=== PATIENT | female | born 1990 ===

== ENCOUNTER 2018-11-24 17:26 | Emergency (ER) | payer OTHER ==
[2018-11-24 17:54] VITALS: RESP 18; TEMP 97.8
[2018-11-24 18:34] VITALS: BP 112/80; PULSE 74; O2SAT 100
== END 2018-11-24 18:31 | disposition home or self-care (01) ==
LOC: ED 17:26
DX: S60.032A Contusion of left middle finger without damage to nail, initial encounter (principal); W23.0XXA Caught, crushed, jammed, or pinched between moving objects, initial encounter; Y93.79 Activity, other specified sports and athletics
CPT/HCPCS: 73130; 99283